=== PATIENT | male | born 1970 | race American Indian/Alaskan Native ===

== ENCOUNTER 2022-03-06 06:02 | Emergency (ER) | payer SELFPAY ==
--- NOTE | 2022-03-06 10:35 | Emergency Department Report ---
- General Chief complaint: Skin/Abscess/Foreign Body Stated complaint: INSECT BITE ON LEFT SHOULDER Time Seen by Provider: 03/06/22 09:37 Source: patient Mode of arrival: Ambulatory Limitations: No Limitations - History of Present Illness Initial comments: 51-year-old black male presents to the emergency department for evaluation of left shoulder insect bite. He states that he was bitten by some a couple days ago and the area looks to be drying but stated that his encouraged him to come in to have evaluation. He denies fever, pain, drainage, or swelling to area. MD complaint: insect bite/sting -: days(s) (1-2) Tetanus Up to Date: unsure Location: LUE (Left shoulder) Severity scale (0 -10): 0 Associated symptoms: denies other symptoms Treatments Prior to Arrival: none - Related Data Allergies Allergy/AdvReac Type Severity Reaction Status Date / Time No Known Allergies Allergy Verified 03/06/22 06:07 Abscess Boil HPI - HPI Chief Complaint: Skin/Abscess/Foreign Body Stated Complaint: INSECT BITE ON LEFT SHOULDER Time Seen by Provider: 03/06/22 09:37 History: Yes Insect Bite, No Fever, No Pain, No Purulent Drainage, No Numbness, No Foreign Body, No Previous History Allergies/Adverse Reactions: Allergies Allergy/AdvReac Type Severity Reaction Status Date / Time No Known Allergies Allergy Verified 03/06/22 06:07 ED Review of Systems ROS: Stated complaint: INSECT BITE ON LEFT SHOULDER Other details as noted in HPI Comment: All other systems reviewed and negative Constitutional: denies: chills, fever Cardiovascular: denies: chest pain, palpitations ED Physical Exam - General Limitations: No Limitations General appearance: alert, in no apparent distress - Head Head exam: Present: atraumatic, normocephalic - Eye Eye exam: Present: normal appearance. Absent: conjunctival injection - Neck Neck exam: Present: normal inspection - Respiratory Respiratory exam: Absent: respiratory distress - Cardiovascular Cardiovascular Exam: Present: regular rate - GI/Abdominal GI/Abdominal exam: Absent: distended - Expanded Upper Extremity Exam Left Shoulder Exam: Absent: normal inspection (Noted to have small insect bite that is mostly dried to area.), tenderness, swelling, erythema, tenderness over AC joint Upper Arm exam: Present: normal inspection Elbow exam: Present: normal inspection Forearm Wrist exam: Present: normal inspection Vascular: Present: normal capillary refill, radial pulse. Absent: vascular compromise, Pallo - Back Exam Back exam: Present: normal inspection - Neurological Exam Neurological exam: Present: alert, oriented X3 - Psychiatric Psychiatric exam: Present: normal affect, normal mood - Skin Skin exam: Present: warm, dry, intact, normal color ED Course Vital Signs 03/06/22 06:06 Temperature 98.1 F Pulse Rate 65 Respiratory 18 Rate Blood Pressure 127/90 O2 Sat by Pulse 99 Oximetry ED Medical Decision Making - Medical Decision Making 51-year-old black male presents to the emergency department for evaluation of left shoulder insect bite. He states that he was bitten by some a couple days ago and the area looks to be drying but stated that his encouraged him to come in to have evaluation. He denies fever, pain, drainage, or swelling to area. Noted to have small insect bite that is unremarkable to left shoulder area. Patient discharged home and advised to monitor and follow-up with primary care provider if worsening symptoms. He verbalizes understanding of and agreement with plan of care. Critical care attestation.: If time is entered above; I have spent that time in minutes in the direct care of this critically ill patient, excluding procedure time. ED Disposition Clinical Impression: Insect bite Qualifiers: Encounter type: initial encounter Site of insect bite: shoulder Laterality: left Qualified Code(s): S40.262A - Insect bite (nonvenomous) of left shoulder, initial encounter; W57.XXXA - Bitten or stung by nonvenomous insect and other nonvenomous arthropods, initial encounter Disposition: HOME / SELF CARE / HOMELESS Is pt being admited?: No Does the pt Need Aspirin: No Condition: Stable Instructions: Insect Bite, Adult, [id number] Additional Instructions: Monitor area and if you develop worsening symptoms follow-up with your primary care provider or return to the emergency department as needed. Referrals: ASHLEY SYED MD [Staff Physician] - 3-5 Days Forms: Work/School Release Form(ED) Time of Disposition: 10:38
[2022-03-06 10:58] VITALS: BP 131/85
== END 2022-03-06 10:57 | disposition home or self-care (01) ==
LOC: ED 06:02
DX: S40.262A Insect bite (nonvenomous) of left shoulder, initial encounter (principal); W57.XXXA Bitten or stung by nonvenomous insect and other nonvenomous arthropods, initial encounter; Y93.89 Activity, other specified; Y92.89 Other specified places as the place of occurrence of the external cause; Y99.8 Other external cause status
CPT/HCPCS: 99282